=== PATIENT | female | born 1945 | race Caucasian/White ===

== ENCOUNTER 2019-05-04 14:53 | Emergency (ER) | payer MEDICARE, BC ==
[~2019-05-04] VITALS: Ht 165.1 cm; Wt 59.0 kg
[2019-05-04] MEDS ORDERED: OXYCODONE/APAP 5-325 MG TABLET ONE (16:08)
[2019-05-04] MEDS: OXYCODONE/APAP 5-325 MG TABLET PO ONE (16:09)
--- NOTE | 2019-05-04 16:49 | NUR ---
PT WAS EVALUATED BY DR DURAN/ PT WAS D/C'd TO HOME. D/C INSTRUCTIONS GIVEN TO THE PT.
[2019-05-04 16:50] VITALS: BP 132/88
== END 2019-05-04 16:51 | disposition home or self-care (01) ==
LOC: ER 14:53
DX: S52.502A Unspecified fracture of the lower end of left radius, initial encounter for closed fracture (principal); W01.0XXA Fall on same level from slipping, tripping and stumbling without subsequent striking against object, initial encounter; Y93.89 Activity, other specified; Y92.89 Other specified places as the place of occurrence of the external cause; Y99.8 Other external cause status
CPT/HCPCS: 73110; A4663

== ENCOUNTER 2021-05-11 20:28 | Emergency (ER) | payer MEDICARE, BC ==
[~2021-05-11] VITALS: Ht 165.1 cm; Wt 54.4 kg
[2021-05-11 21:22] LABS: HEMATOCRIT 39.8 % (31.2-41.9); MEAN CORPUSCULAR HEMOGLOBIN 30.9 uug (24.7-32.8); PLATELET COUNT (AUTO) 211 K/uL (179-408); POTASSIUM 4.3 mmol/L (3.5-5.1)
[2021-05-11 21:28] LABS: BILIRUBIN,DIRECT 0.1 mg/dL (0.0-0.2); BILIRUBIN,TOTAL 0.2 mg/dL (0.2-1.0); TOTAL PROTEIN, SERUM 7.2 g/dL (6.4-8.2)
[2021-05-11] MEDS ORDERED: MECLIZINE HCL 25 MG TABLET PO ONE (22:00)
[2021-05-11] MEDS ORDERED: MECL-159 PO (22:01)
[2021-05-11 22:02] LABS: *BILIRUBIN,URIN NEGATIVE (NEGATIVE); *CLARITY,URINE CLEAR (CLEAR); *COLOR,URINE LIGHT YELLOW (YELLOW); *KETONES,URINE NEGATIVE (NEGATIVE); *UROBILINOGEN,URINE 0.2 E.U./dl (NORMAL); LEUKOCYTE ESTERASE ,URINE TRACE (NEGATIVE); NITRITE, URINE NEGATIVE (NEGATIVE); PH,URINE 7.5 (5.0-8.0); UGLUCOSE NEGATIVE (NEGATIVE)
[2021-05-11 22:04] LABS: *BLOOD, URINE TRACE (NEGATIVE)
--- NOTE | 2021-05-11 22:10 | NUR ---
Patient discharged to home in stable condition. Written and verbal after care instructions given. Patient verbalizes understanding of instructions. Stressed follow up or return to ER for worsening s/s. pt sent home in stable condition, prescription provided. pt ambulated with steady gait, pt's accompanied patient.
[2021-05-11 22:12] VITALS: BP 140/80
[2021-05-11] MEDS ORDERED: MECLIZINE HCL 25 MG TABLET ONE (22:14)
[2021-05-11 22:17] LABS: BACTERIA,URINE NONE SEEN /HPF (NONE SEEN); RBC,URINE 0-3 /HPF (0-3); SQUAMOUS EPITHELIAL CELL,UR FEW /HPF (NONE SEEN); WBC,URINE 0-3 /HPF (0-3)
== END 2021-05-11 22:13 | disposition home or self-care (01) ==
LOC: ER 20:38
DX: H81.10 Benign paroxysmal vertigo, unspecified ear (principal); I10 Essential (primary) hypertension
CPT/HCPCS: 36415; 70030-TC; 70450; 71045; 85025; 93005; A4663; J8597